=== PATIENT | female | born 1950 | race Caucasian/White ===

== ENCOUNTER 2017-04-05 15:28 | Emergency (ER) | payer OTHER ==
[2017-04-05 15:34] VITALS: BP 134/72; PULSE 98; RESP 18; TEMP 98.2
[2017-04-05] MEDS ORDERED: LIDOCAINE 0.5%-EPI 1:200,000 50 ML VIAL SQ STA (15:41)
[2017-04-05] MEDS ORDERED: SILVER NITRATE APPLICATOR 1 EACH STICK..EA. TOPICAL STA (15:57)
--- NOTE | 2017-04-05 16:00 | ED ---
Extremity Problem HPI - General Chief complaint: Extremity Problem,Nontraumatic Stated complaint: R foot bleed Time Seen by Provider: 04/05/17 15:36 Source: patient, RN notes reviewed Mode of arrival: ambulatory Limitations: no limitations - History of Present Illness Initial comments: 66-year-old female presents emergency Department chief complaint of bleeding wound to the right ankle. Patient states that this started today when she got home from her walk. Patient states he put a pressure dressing on her and it seemed to subside but she still is having some bruising. Patient admits to history of varicose veins. Patient states that there is no pain trauma or any other injury at this time. Patient denies any recent fever, chills, shortness of breath, chest pain, back pain, abdominal pain, nausea vomiting, numbness or tingling, dysuria or hematuria, constipation or diarrhea, headaches or visual changes, or any other current symptoms. - Related Data Home Medications Medication Instructions Recorded Confirmed Atorvastatin [Lipitor] 20 mg PO HS 12/11/14 04/05/17 glipiZIDE [Glucotrol] 10 mg PO W/BRKFST 12/11/14 04/05/17 metFORMIN HCL [Glucophage] 500 mg PO TID-W/MEALS 12/11/14 04/05/17 Albuterol Nebulized [Ventolin 2.5 mg INHALATION RT-QID PRN 04/05/17 04/05/17 Nebulized] Aspirin EC [Ecotrin Low Dose] 81 mg PO HS 04/05/17 04/05/17 Calcium Carbonate/Vitamin D3 1 tab PO DAILY 04/05/17 04/05/17 [Calcium 600-Vit D3 400 Caplet] Lisinopril [Zestril] 20 mg PO DAILY 04/05/17 04/05/17 Allergies Allergy/AdvReac Type Severity Reaction Status Date / Time No Known Allergies Allergy Verified 04/05/17 15:34 Review of Systems ROS Statement: Those systems with pertinent positive or pertinent negative responses have been documented in the HPI. ROS Other: All systems not noted in ROS Statement are negative. Past Medical History Past Medical History: Coronary Artery Disease (CAD), Diabetes Mellitus, GERD/ Reflux, Hyperlipidemia, Hypertension Additional Past Medical History / Comment(s): ABSCESS RIGHT BREAST, STATES HAS DRAINAGE History of Any Multi-Drug Resistant Organisms: None Reported Past Surgical History: Breast Surgery, Cholecystectomy, Heart Catheterization With Stent, Hysterectomy Additional Past Surgical History / Comment(s): STENTS X2, BREAST REDUCTION, BILAT CATARACTS REMOVED. COLONOSCOPY Past Anesthesia/Blood Transfusion Reactions: No Reported Reaction Date of Last Stent Placement:: APPROX 2011 Past Psychological History: No Psychological Hx Reported Smoking Status: Current every day smoker Past Alcohol Use History: None Reported Past Drug Use History: None Reported - Past Family History Mother Family Medical History: No Reported History General Exam - General Exam Comments Initial Comments: General: The patient is awake and alert, in no distress, and does not appear acutely ill. Neck: The neck is supple, there is no tenderness . Cardiovascular: There is a regular rate and rhythm. No murmur, rub or gallop is appreciated. Respiratory: Lungs are clear to auscultation, respirations are non-labored, breath sounds are equal. No wheezes, stridor, rales, or rhonchi. Musculoskeletal: Patient tach with 2+ pulses at the right lower extremity. Fund motion of right knee and right ankle. Patient does appear to have a bleeding varicose pain to the internal aspect of the right ankle. Neurological: CN II-XII intact, There are no obvious motor or sensory deficits. Coordination appears grossly intact. Speech is normal. Skin: Skin is warm and dry and no rashes or lesions are noted. Psychiatric: Normal mood and affect. Limitations: no limitations Course Vital Signs 04/05/17 15:30 Temperature 98.2 F Pulse Rate 98 Respiratory 18 Rate Blood Pressure 134/72 O2 Sat by Pulse 96 Oximetry Procedures - Procedures Initial comment: At this time 1% lidocaine with epi was used to numb the area. The bleeding subsided and cautery was used to stop the bleeding. The area was cleaned and prepped prior to the procedure and with Betadine and the patient tolerated procedure well without complications. 3 mL of lidocaine with epi was used. Medical Decision Making - Medical Decision Making 66-year-old female presents with bleeding from a varicose vein. This tended bleeding has subsided. Cautery was placed. We discussed care follow-up return parameters all questions. Patient and family stated the Jose Carlos on questions have been answered. This time they will be discharged home. Disposition Clinical Impression: Bleeding from varicose veins of right lower extremity Disposition: HOME SELF-CARE Condition: Stable Instructions: Varicose Veins (ED) Additional Instructions: Please use medication as discussed. Please follow up with family doctor if symptoms have not improved over the next two days. Please return to the emergency room if your symptoms increase or worsen or for any other concerns. Referrals: Yair Harris MD [Primary Care Provider] - 1-2 days Time of Disposition: 16:15
== END 2017-04-05 16:20 | disposition home or self-care (01) ==
LOC: EC 15:28
DX: I83.891 Varicose veins of right lower extremity with other complications (principal); E78.5 Hyperlipidemia, unspecified; I25.10 Atherosclerotic heart disease of native coronary artery without angina pectoris; E11.9 Type 2 diabetes mellitus without complications; I10 Essential (primary) hypertension; F17.200 Nicotine dependence, unspecified, uncomplicated; Z79.82 Long term (current) use of aspirin; Z79.84 Long term (current) use of oral hypoglycemic drugs; Z79.899 Other long term (current) drug therapy
CPT/HCPCS: 12001; 99283

== ENCOUNTER 2017-08-18 10:15 | Day surgery (SDC) | payer OTHER ==
[2017-08-17 08:16] VITALS: BMI 35.4
[~2017-08-18 10:15] MED LIST: DEXAMETHASONE SOD PHOSPHATE 10 MG/ML 1 ML VIAL IV ONE; HEPARIN SODIUM,PORCINE 5,000 UNIT/ML 1 ML VIAL SQ ONE; HYDROmorphone 0.5 MG/0.5 ML SYRINGE IVP PRN; LACTATED RINGERS 1,000 ML IV SCH; MIDAZOLAM 2 MG/2 ML VIAL IV PRN; ONDANSETRON 4 MG/2 ML VIAL IVP ONE; ceFAZolin IN SWFI 2 GM/20 ML SYRINGE IVP ONE
[2017-08-18] MEDS ORDERED: HEPARIN SODIUM,PORCINE 5,000 UNIT/ML 1 ML VIAL SQ ONE ×2 (11:33→12:58)
[2017-08-18 12:23] VITALS: RESP 16; TEMP 96.8
[2017-08-18] MEDS ORDERED: LIDOCAINE 1% 20 ML VIAL (10MG/ML) FOR IV START INTRADERMA ONE (12:38)
[2017-08-18 12:47] LABS: Glucose,Whole Blood 149 mg/dL (75-99)
[2017-08-18] MEDS ORDERED: KETAMINE 10 MG/ML 20 ML VIAL ONE (13:27)
[2017-08-18] MEDS ORDERED: MIDAZOLAM 2 MG/2 ML VIAL ONE (13:27)
[2017-08-18] MEDS ORDERED: PROPOFOL 10 MG/ML 20 ML VIAL IV ONE (13:27)
[2017-08-18] MEDS ORDERED: fentaNYL (PF) 50 MCG/ML 2 ML AMP ONE (13:27)
--- NOTE | 2017-08-18 13:58 | P.OP ---
Date of Procedure: 08/18/17 Preoperative Diagnosis: skin lesion possible basal cell carcinoma Postoperative Diagnosis: same Procedure(s) Performed: wide excision skin lesion of concern Anesthesia: MAC Surgeon: Chiquita Moore Estimated Blood Loss (ml): 3 IV fluids (ml): 500 Pathology: other (skin lesion possible ulcerated basal cell carcinoma) Condition: stable Disposition: PACU Indications for Procedure: new-onset ulcerated skin lesion Operative Findings: ulcerated skin lesion Description of Procedure: patient was taken to the operating room and following sedation the area of concern on the right breast was prepped and draped in a sterile fashion. This was in the incision proceeded previously been used for a mastopexy and breast reduction. The lesion itself was approximately 1.5 x 1 cm in size. It had heaped up edges with an ulcerated base. Wide excision was performed excision was approximately 3cmx1.5cm and the depth the incision was through the subcutaneous tissue. To facilitate closure deep 3-0 Vicryl sutures were placed. This was followed by interrupted nylon skin sutures. The specimen was sent to pathology after it had been oriented. The patient tolerated the procedure in stable condition. All instrument and sponge counts were correct at the end of the case.
--- NOTE | 2017-08-18 13:59 | P.DS ---
Providers Attending physician: Chiquita Moore Primary care physician: Steven Mazariegos Plan - Discharge Summary New Discharge Prescriptions: No Action metFORMIN HCL [Glucophage] 500 mg PO TID-W/MEALS glipiZIDE [Glucotrol] 10 mg PO W/BRKFST Atorvastatin [Lipitor] 20 mg PO HS Aspirin EC [Ecotrin Low Dose] 81 mg PO HS Albuterol Nebulized [Ventolin Nebulized] 2.5 mg INHALATION QID PRN PRN Reason: sob Lisinopril [Zestril] 20 mg PO DAILY Sulfamethox-Tmp 800-160Mg [Bactrim DS 800-160 mg] 1 tab PO Q12HR Discharge Medication List Atorvastatin [Lipitor] 20 mg PO HS 12/11/14 [History] glipiZIDE [Glucotrol] 10 mg PO W/BRKFST 12/11/14 [History] metFORMIN HCL [Glucophage] 500 mg PO TID-W/MEALS 12/11/14 [History] Albuterol Nebulized [Ventolin Nebulized] 2.5 mg INHALATION QID PRN 04/05/17 [ History] Aspirin EC [Ecotrin Low Dose] 81 mg PO HS 04/05/17 [History] Lisinopril [Zestril] 20 mg PO DAILY 04/05/17 [History] Sulfamethox-Tmp 800-160Mg [Bactrim DS 800-160 mg] 1 tab PO Q12HR 08/17/17 [ History] Follow up Appointment(s)/Referral(s): Chiquita Moore MD [STAFF PHYSICIAN] - 1 Week Activity/Diet/Wound Care/Special Instructions: patient to wear bra at all times May shower after [address] Discharge Disposition: HOME SELF-CARE
[2017-08-18 14:29] VITALS: BP 105/76; PULSE 76
== END 2017-08-18 15:16 | disposition home or self-care (01) ==
LOC: OR 10:15
PROVIDERS: ATTEND Surgery
DX: E11.52 Type 2 diabetes mellitus with diabetic peripheral angiopathy with gangrene (principal); I96 Gangrene, not elsewhere classified; L90.5 Scar conditions and fibrosis of skin; E78.00 Pure hypercholesterolemia, unspecified; I10 Essential (primary) hypertension; J44.9 Chronic obstructive pulmonary disease, unspecified; Z98.84 Bariatric surgery status; Z79.84 Long term (current) use of oral hypoglycemic drugs; Z79.82 Long term (current) use of aspirin; Z79.52 Long term (current) use of systemic steroids; Z79.899 Other long term (current) drug therapy; F17.200 Nicotine dependence, unspecified, uncomplicated
CPT/HCPCS: 88304; 11403; 12032; J2250; J1644; J1100; J0690; J2405; J3010; J2704

== ENCOUNTER 2017-08-26 07:27 | Emergency (ER) | payer OTHER ==
--- NOTE | 2017-08-26 07:36 | ED ---
General Adult HPI - General Stated complaint: FALL Time Seen by Provider: 08/26/17 07:32 Source: patient, EMS, RN notes reviewed - History of Present Illness Initial comments: 66-year-old female presents for evaluation of left knee pain. Patient states yesterday afternoon she tripped and fell in a parking lot, striking her knee on the curb. Patient had moderate pain after the injury, she was able to bear weight and ambulate. Over the past 12 hours, pain and swelling have worsened. Patient was unable to bear weight this morning on this knee. She complains of bruising, swelling and severe pain. She took her Toston with minimal relief. Denies any other injuries. Denies head or neck trauma. Denies chest pain or shortness breath. Denies abdominal pain, nausea vomiting. - Related Data Home Medications Medication Instructions Recorded Confirmed Atorvastatin [Lipitor] 20 mg PO HS 12/11/14 08/26/17 glipiZIDE [Glucotrol] 10 mg PO W/BRKFST 12/11/14 08/26/17 metFORMIN HCL [Glucophage] 500 mg PO TID-W/MEALS 12/11/14 08/26/17 Aspirin EC [Ecotrin Low Dose] 81 mg PO HS 04/05/17 08/26/17 Lisinopril [Zestril] 20 mg PO DAILY 04/05/17 08/26/17 HYDROcodone/APAP 5-325MG [Toston 1 - 2 tab PO Q4HR PRN 08/26/17 08/26/17 5-325] Previous Rx's Medication Instructions Recorded HYDROcodone/APAP 7.5-325MG [Toston 1 tab PO Q6HR PRN #20 tab 08/26/17 7.5-325] Allergies Allergy/AdvReac Type Severity Reaction Status Date / Time No Known Allergies Allergy Verified 08/26/17 07:38 Review of Systems ROS Statement: Those systems with pertinent positive or pertinent negative responses have been documented in the HPI. ROS Other: All systems not noted in ROS Statement are negative. Past Medical History Past Medical History: Asthma, Coronary Artery Disease (CAD), COPD, Diabetes Mellitus, Hyperlipidemia, Hypertension Additional Past Medical History / Comment(s): ABSCESS RIGHT BREAST, on antibiotic from Dr Clemens for breast infection, varicose veins, History of Any Multi-Drug Resistant Organisms: None Reported Past Surgical History: Breast Surgery, Cholecystectomy, Heart Catheterization, Hysterectomy Additional Past Surgical History / Comment(s): BREAST REDUCTION, BILAT CATARACTS REMOVED Past Anesthesia/Blood Transfusion Reactions: No Reported Reaction Date of Last Stent Placement:: 2011 Smoking Status: Current every day smoker - Past Family History Mother Family Medical History: No Reported History General Exam General appearance: alert, in no apparent distress Head exam: Present: atraumatic, normocephalic Eye exam: Present: normal appearance, PERRL ENT exam: Present: normal exam Neck exam: Present: normal inspection, full ROM. Absent: tenderness Respiratory exam: Present: normal lung sounds bilaterally. Absent: respiratory distress Cardiovascular Exam: Present: regular rate, normal rhythm GI/Abdominal exam: Present: soft. Absent: distended, tenderness Extremities exam: Present: other (Swelling, ecchymosis, and effusion of the left knee, DP pulse on the left 2+. Swelling in the calf with minimal tenderness.) Neurological exam: Present: alert, oriented X3, CN II-XII intact. Absent: motor sensory deficit Psychiatric exam: Present: normal affect, normal mood Skin exam: Present: warm, dry, intact. Absent: cyanosis, diaphoretic Course Vital Signs 08/26/17 08/26/17 07:32 08:35 Temperature 98.4 F Pulse Rate 85 67 Respiratory 20 16 Rate Blood Pressure 141/69 113/53 O2 Sat by Pulse 97 95 Oximetry Medical Decision Making - Medical Decision Making 66-year-old female presents status post fall with pain and swelling of the left knee. There is some mild swelling in the calf, ultrasound is obtained, negative for DVT. X-ray shows no acute bony abnormality, no fracture dislocation. On examination there is ecchymosis, and effusion. There is concern for ligamentous injury of the knee. Patient is placed in a knee immobilizer. Given a prescription for crutches. She will call to make an appointment with orthopedic physician today. Patient does have a friend was able to help at home. Disposition Clinical Impression: Effusion of knee, Knee contusion Disposition: HOME SELF-CARE Condition: Good Instructions: Knee Pain (ED), Swollen Knee Joint (ED) Prescriptions: HYDROcodone/APAP 7.5-325MG [Toston 7.5-325] 1 tab PO Q6HR PRN #20 tab PRN Reason: Pain Referrals: Yair Harris MD [Primary Care Provider] - 1-2 days Ralf Lo MD [Medical Doctor] - 1-2 days Time of Disposition: 09:13
[2017-08-26] MEDS ORDERED: KETOROLAC 30 MG/ML 1 ML VIAL IM STA (07:47)
--- NOTE | 2017-08-26 08:00 | XR ---
EXAMINATION TYPE: XR knee complete LT DATE OF EXAM: 08/26/2017 CLINICAL HISTORY: pain TECHNIQUE: Three views of the left knee are obtained. COMPARISON: None. FINDINGS: There is no acute fracture/dislocation. The tri-compartment joint spaces appear within no rmal limits. The overlying soft tissue appears unremarkable. Suprapatellar joint effusion identified . IMPRESSION: There is no acute fracture or dislocation ICD 10 NO FRACTURE, INITIAL EVALUATION
[2017-08-26 08:36] VITALS: RESP 16
--- NOTE | 2017-08-26 09:04 | US ---
EXAMINATION TYPE: US venous doppler duplex LE LT DATE OF EXAM: 08/26/2017 8:53 AM COMPARISON: NONE CLINICAL HISTORY: Pain. SIDE PERFORMED: Left TECHNIQUE: The lower extremity deep venous system is examined utilizing real time linear array sonog kelli with graded compression, doppler sonography and color-flow sonography. VESSELS IMAGED: External Iliac Vein (EIV) not visualized due to panis Common Femoral Vein Deep Femoral Vein Greater Saphenous Vein * Femoral Vein Popliteal Vein Small Saphenous Vein * Proximal Calf Veins (* superficial vessels) Large body habitus technically difficult study. Grayscale, color doppler, spectral doppler imaging performed of the deep veins of the lower extremity . There is normal flow, compressibility, vascular waveforms. Left Leg: Negative for DVT IMPRESSION: No evidence for DVT left lower extremity.
[2017-08-26 09:27] VITALS: BP 117/68; PULSE 65; TEMP 97.7
== END 2017-08-26 09:20 | disposition home or self-care (01) ==
LOC: EC 07:27
DX: S80.02XA Contusion of left knee, initial encounter (principal); M25.462 Effusion, left knee; E78.5 Hyperlipidemia, unspecified; I10 Essential (primary) hypertension; I25.10 Atherosclerotic heart disease of native coronary artery without angina pectoris; E11.9 Type 2 diabetes mellitus without complications; F17.200 Nicotine dependence, unspecified, uncomplicated; Z79.82 Long term (current) use of aspirin; Z79.84 Long term (current) use of oral hypoglycemic drugs; Z79.899 Other long term (current) drug therapy; W18.09XA Striking against other object with subsequent fall, initial encounter; Y92.481 Parking lot as the place of occurrence of the external cause
CPT/HCPCS: 96372; 99284

== ENCOUNTER 2017-11-25 12:38 | Emergency (ER) | payer OTHER, MEDICARE ==
--- NOTE | 2017-11-25 13:15 | ED ---
Extremity Problem HPI - General Chief complaint: Extremity Problem,Nontraumatic Stated complaint: Arm Pain Time Seen by Provider: 11/25/17 12:48 Source: patient, RN notes reviewed Mode of arrival: ambulatory Limitations: no limitations - History of Present Illness Initial comments: This is a 67-year-old female who presents to the emergency department with chief complaint of intermittent right arm pain. Patient states that her right arm has been hurting for the last 2-3 days. She states that there is a sharp, shooting pain that starts in her right shoulder and radiates down to her wrist and hand. Patient states that she occasionally feels tingling in her fingers. She denies any injury, trauma or falls. Patient also reports that she has some right-sided neck pain. She states that she has an appointment scheduled for tomorrow morning with her orthopedic doctor. She states that she is in a lot of pain and requests pain medication. She states that she has taken Aleve and BenGay with minimal relief. Denies fever, chills, chest pain, shortness of breath, abdominal pain, nausea or vomiting, constipation or diarrhea, dysuria or hematuria, headache or vision changes. - Related Data Home Medications Medication Instructions Recorded Confirmed Atorvastatin [Lipitor] 20 mg PO HS 12/11/14 08/26/17 glipiZIDE [Glucotrol] 10 mg PO W/BRKFST 12/11/14 08/26/17 metFORMIN HCL [Glucophage] 500 mg PO TID-W/MEALS 12/11/14 08/26/17 Aspirin EC [Ecotrin Low Dose] 81 mg PO HS 04/05/17 08/26/17 Lisinopril [Zestril] 20 mg PO DAILY 04/05/17 08/26/17 HYDROcodone/APAP 5-325MG [Britt 1 - 2 tab PO Q4HR PRN 08/26/17 08/26/17 5-325] Previous Rx's Medication Instructions Recorded HYDROcodone/APAP 7.5-325MG [Britt 1 tab PO Q6HR PRN #20 tab 08/26/17 7.5-325] Ibuprofen 600 mg PO Q6HR #20 tablet 11/25/17 Allergies Allergy/AdvReac Type Severity Reaction Status Date / Time No Known Allergies Allergy Verified 11/25/17 12:47 Review of Systems ROS Statement: Those systems with pertinent positive or pertinent negative responses have been documented in the HPI. ROS Other: All systems not noted in ROS Statement are negative. Past Medical History Past Medical History: Asthma, Coronary Artery Disease (CAD), COPD, Diabetes Mellitus, Hyperlipidemia, Hypertension Additional Past Medical History / Comment(s): ABSCESS RIGHT BREAST, on antibiotic from Dr Clemens for breast infection, varicose veins, History of Any Multi-Drug Resistant Organisms: None Reported Past Surgical History: Breast Surgery, Cholecystectomy, Heart Catheterization, Hysterectomy Additional Past Surgical History / Comment(s): BREAST REDUCTION, BILAT CATARACTS REMOVED Past Anesthesia/Blood Transfusion Reactions: No Reported Reaction Date of Last Stent Placement:: APPROX 2011 Past Psychological History: No Psychological Hx Reported Smoking Status: Current every day smoker Past Alcohol Use History: None Reported Past Drug Use History: None Reported - Past Family History Mother Family Medical History: No Reported History General Exam - General Exam Comments Initial Comments: General: Awake and alert, well-developed; in no apparent distress. HEENT: Head atraumatic, normocephalic. Pupils are equal, round and reactive to light. Extraocular movements intact. Oropharynx moist without erythema or exudate. Neck: Supple. Normal ROM. No tenderness. Cardiovascular: Regular rate and rhythm. No murmurs, rubs or gallops. Chest symmetrical. Respiratory: Lungs clear to auscultation bilaterally. No wheezes, rales or rhonchi. Normal respiratory effort with no use of accessory muscles. Musculoskeletal: Normal ROM of right upper extremity. Strength 5/5. No obvious gross deformities, erythema, swelling, ecchymosis or tenderness on palpation. Sensation is intact. Radial pulses are 2+ equal and palpable bilaterally. Skin: [place], warm and dry without rashes or lesions. Neurological: Alert and oriented x3. CN II-XII grossly intact. Speech is fluent and answers are appropriate. No focal neuro deficits. Limitations: no limitations Course Vital Signs 11/25/17 12:45 Temperature 98.1 F Pulse Rate 85 Respiratory 20 Rate Blood Pressure 143/92 O2 Sat by Pulse 98 Oximetry Medical Decision Making - Medical Decision Making This is a 67-year-old female who presents to the emergency department chief complaint of intermittent right arm pain. Pain begins in her right shoulder and radiates down the length of her arm. She describes the pain as sharp and shooting in nature. Denies any injuries or recent falls. X-ray of right shoulder reveal no acute abnormalities. X-ray of cervical spine revealed no acute abnormalities, however he did no foraminal narrowing at C5 to C6. Patient 's strength is 5/5 and radial pulses are 2+ equal and palpable bilaterally. Denies chest pain or shortness of breath. She will be discharged home with a prescription for ibuprofen. She is in no acute distress. She is to follow up with her orthopedic doctor tomorrow morning as scheduled. Patient is in agreement and voices understanding. All questions were answered. - Radiology Data Radiology results: report reviewed Right shoulder x-ray findings: There is no interval change. Old right-sided rib fractures at the sixth rib again noted. Hypertrophic change present at the acromioclavicular joint. Right lung apex is visualized is normal. No fracture or dislocation. Impression: stable exam. Shoulder MRI may be a benefit. X-ray cervical spine impression: 1. No acute fracture or dislocation is seen in the cervical spine. 2. Mild laterally and C6 through C7 on the left multilevel degenerative changes of the cervical spine resulting at least mild neural foraminal narrowing at C5 to C6. 3. Incidentally noted left calcific atheromatous changes of the carotid. Disposition Clinical Impression: Cervical radicular pain Disposition: HOME SELF-CARE Condition: Good Instructions: Cervical Radiculopathy (ED) Additional Instructions: Please take medications as prescribed. Please follow up with your orthopedic doctor tomorrow as scheduled. Please follow up with primary care provider within 1-2 days. Return to emergency department if symptoms should worsen or any concerns arise. Prescriptions: Ibuprofen 600 mg PO Q6HR #20 tablet Referrals: Yair Harris MD [Primary Care Provider] - 1-2 days Time of Disposition: 14:18
--- NOTE | 2017-11-25 13:56 | XR ---
EXAMINATION TYPE: XR cervical spine comp DATE OF EXAM: 11/25/2017 TECHNIQUE: Frontal, oblique and lateral cervical spine radiograph's are obtained. Odontoid view is al so obtained. HISTORY: Neck pain COMPARISON: None FINDINGS: The cervical spine is visualized in its entirety from C1 thru the top of C6 level, it is s atisfactory in alignment without evidence of acute fracture or dislocation. The pre-vertebral soft t issue appears within normal limits. The C1-C2 articulation is within normal limits on the open mouth view. Mild multilevel degenerative disc disease is seen demonstrated as facet arthropathy, small ant erior osteophytes and intervertebral disc space narrowing. Uncovertebral hypertrophy is also seen on the frontal image. This results in at least mild radiographic neural foraminal narrowing at C5-C6 on the right and C5-C6 as well as C6-C7 on the left. Incidental note is made of calcific atheromatous ch anges of the left carotid artery. Visualized upper ribs are nondisplaced. IMPRESSION: 1. No acute fracture or dislocation is seen in the cervical spine. 2. Mild laterally and C6-C7 on the left multilevel degenerative changes of the cervical spine resulti ng in at least mild neural foraminal narrowing at C5-C6. 3. Incidentally noted left calcific atheromatous changes of the carotid.
--- NOTE | 2017-11-25 13:57 | XR ---
Right shoulder HISTORY: Right shoulder pain 3 views of the right shoulder correlated to prior exam 04/05/2014 There is no interval change. Old right-sided rib fracture at the sixth rib again noted. Hypertrophic change present at the acromioclavicular joint. Right lung apex as visualized is normal. No fracture o r dislocation. IMPRESSION: Stable exam. Shoulder MRI may be of benefit.
[2017-11-25 14:34] VITALS: BP 138/86; PULSE 87; RESP 17; TEMP 98.3
== END 2017-11-25 14:33 | disposition home or self-care (01) ==
LOC: EC 12:38
DX: M54.12 Radiculopathy, cervical region (principal); M79.601 Pain in right arm; I25.10 Atherosclerotic heart disease of native coronary artery without angina pectoris; E11.9 Type 2 diabetes mellitus without complications; E78.5 Hyperlipidemia, unspecified; I10 Essential (primary) hypertension; F17.200 Nicotine dependence, unspecified, uncomplicated; Z79.82 Long term (current) use of aspirin; Z79.84 Long term (current) use of oral hypoglycemic drugs; Z79.899 Other long term (current) drug therapy
CPT/HCPCS: 72050; 99283

== ENCOUNTER → 2018-07-01 | Outpatient (CLI) | payer MEDICARE, OTHER ==
[2018-07-01 16:14] VITALS: BP 129/74; PULSE 80; RESP 16; TEMP 97.8; BMI 39.9
--- NOTE | 2018-07-01 16:27 | P.GSHP ---
History of Present Illness H&P Date: 07/01/18 Patient is a 67 year old white female with a complaint of bleeding and drainage under her right breast. This has been going on for several weeks. Patient has had multiple abscesses drained in both breasts in the right breast in the past. Has no fever or chills. She her last mammogram was approximately a year and a half ago. She has no dominant masses or nodules of concern in either breast. Of significance is the fact the patient is had bilateral reduction mammoplasties done in 1991. Since that time she has had recurrent abscesses in the inferior aspect of the right breast. These of required surgical drainage on multiple occasions. Her last surgical treatment was a proximally 6 months ago draining an abscess from the right breast. Family History: none cancer mother: form CHF father: CHF Hormonal History: menarche: 16 : 3, 3 live births, did not breast-feed firstborn at 20 Menopause: 52 control pills: 2 years Hormones: 2 years Past Surgical History: 1. gallbladder 2. total hysterectomy 3. breast reduction 4. breast abcesses drained 5. heart cath Past Medical History: 1. COPD 2. bronchitis/emphysema 3. asthma 4. HTN 5. high cholesterol 6. nicotine dependance 7. diabetes 8. hyperlipedema Social Hsitory: smoke: 1 PPD/40 years alcohol: none drugs: none - Constitutional Constitutional: Denies chills, Denies fever - EENT Comment: cataract surgery bilateral eyes Ears: deny: decreased hearing, tinnitus Ears, nose, mouth and throat: Denies headache, Denies sore throat - Breasts Breasts: bilateral: as per HPI - Cardiovascular Cardiovascular: Reports high blood pressure - Respiratory Respiratory: Reports as per HPI - Gastrointestinal Gastrointestinal: Denies abdominal pain, Denies diarrhea, Denies nausea, Denies vomiting - Genitourinary (Female) Genitourinary: Denies dysuria, Denies hematuria - Menstruation Menstruation: Reports post hysterectomy - Musculoskeletal Musculoskeletal: Reports low back pain, Denies myalgias - Integumentary Integumentary: Denies pruritus, Denies rash - Neurological Neurological: Denies numbness, Denies weakness - Psychiatric Psychiatric: Denies anxiety, Denies depression - Endocrine Comment: diabetes - Hematologic/Lymphatic Comment: none - Allergic/Immunologic Comment: none Past Medical History Past Medical History: Asthma, Coronary Artery Disease (CAD), COPD, Diabetes Mellitus, Hyperlipidemia, Hypertension Additional Past Medical History / Comment(s): ABSCESS RIGHT BREAST, on antibiotic from Dr Clemens for breast infection, varicose veins, History of Any Multi-Drug Resistant Organisms: None Reported Past Surgical History: Breast Surgery, Cholecystectomy, Heart Catheterization, Hysterectomy Additional Past Surgical History / Comment(s): BREAST REDUCTION, BILAT CATARACTS REMOVED Past Anesthesia/Blood Transfusion Reactions: No Reported Reaction Date of Last Stent Placement:: 2011 Past Psychological History: No Psychological Hx Reported Smoking Status: Current every day smoker Past Alcohol Use History: None Reported Past Drug Use History: None Reported - Past Family History Mother Family Medical History: No Reported History Medications and Allergies Home Medications Medication Instructions Recorded Confirmed Type Atorvastatin [Lipitor] 20 mg PO HS 12/11/14 08/26/17 History glipiZIDE [Glucotrol] 10 mg PO W/BRKFST 12/11/14 08/26/17 History metFORMIN HCL [Glucophage] 500 mg PO TID-W/MEALS 12/11/14 08/26/17 History Aspirin EC [Ecotrin Low Dose] 81 mg PO HS 04/05/17 08/26/17 History Lisinopril [Zestril] 20 mg PO DAILY 04/05/17 08/26/17 History HYDROcodone/APAP 5-325MG [[place] 1 - 2 tab PO Q4HR PRN 08/26/17 08/26/17 History 5-325] HYDROcodone/APAP 7.5-325MG [[place] 1 tab PO Q6HR PRN #20 tab 08/26/17 Rx 7.5-325] Ibuprofen 600 mg PO Q6HR #20 tablet 11/25/17 Rx Allergies Allergy/AdvReac Type Severity Reaction Status Date / Time No Known Allergies Allergy Verified 11/25/17 12:47 Surgical - Exam BMI: 39.9 - General obese - Eyes normal ocular movement - ENT no hearing loss, no congestion, dentures - Neck no masses, trachea midline - Respiratory normal expansion, normal respiratory effort, clear to auscultation - Cardiovascular Rhythm: regular Heart Sounds: normal: S1, S2 - Abdomen Abdomen: soft, non tender, no guarding, no rigid, no rebound - Integumentary Under the right breast there is an area approximately 2 cm x 6 cm which is erythematous and nonhealing wound. The patient states from this area she has purulent drainage at times although there is no purulence there at this time. Cultures are obtained from this area. The right breast is smaller than the left breast following her reduction mammoplasty and multi-positional exam does not reveal any dominant masses or nodules of concern in the right breast. Right axilla: No adenopathy of concern Left breast: Scars related to prior reduction mammoplasty, multi-positional exam no dominant masses or nodules of concern Left axilla: No adenopathy of concern - Neurologic no disoriented, no combative - Musculoskeletal normal gait, normal posture - Psychiatric oriented to time, oriented to person, oriented to place, speech is normal, memory intact Results Impression: 1. Bilateral breast reduction with recurrent nonhealing scar tissue under the right breast, no active infection at this time area of nonhealing wound under the right breast at this time 2. Hypertension 3. Diabetes 4. High cholesterol 5. morbid obesity 6. Asthma 7. COPD 9. Status post surgery for varicose vein 10. Nicotine dependence Plan: 1. Surgical resection of the area of scar tissue 2. await cultures 3. bilateral mammogram 4. Medical management of medical problems 5. medical clearance for surgery Patient understands risks and benefits of surgery and wishes to proceed. CC: Dr. Harris
== END ==
LOC: WWCWWP 15:03
PROVIDERS: ATTEND Surgery
DX: Z53.9 Procedure and treatment not carried out, unspecified reason (principal)

== ENCOUNTER → 2018-10-19 | Outpatient (CLI) | payer MEDICARE, OTHER ==
--- NOTE | 2018-10-27 08:24 | MM ---
Reason for exam: additional evaluation requested from prior study. Last mammogram was performed 13 years ago. History: Patient is postmenopausal. Cyst aspiration of the right breast, 1995. Excisional biopsy of the left breast, 1995. Reductions of both breasts, 1991. Physical Findings: Nurse did not find any significant physical abnormalities on exam. MG Diagnostic Mammo w CAD [place] Bilateral CC and MLO view(s) were taken. Prior study comparison: April 13, 2017, mammogram, performed at [facility]. There are scattered fibroglandular densities. There are benign appearing round calcifications bilaterally. There is no discrete abnormality. These results were verbally communicated with the patient on 10/26/18. ASSESSMENT: Benign, BI-RAD 2 RECOMMENDATION: Routine screening mammogram of both breasts in 1 year. Manage patient on a clinical basis.
== END | disposition home or self-care (01) ==
LOC: RADMAMWWP 12:51
PROVIDERS: ATTEND Surgery
DX: N61.1 Abscess of the breast and nipple (principal)
CPT/HCPCS: 77066

== ENCOUNTER → 2019-02-24 | Outpatient (CLI) | payer MEDICARE, OTHER ==
[2019-02-24 14:13] VITALS: BP 108/65; PULSE 92; RESP 16; TEMP 98.2; BMI 36.6
--- NOTE | 2019-02-24 15:23 | P.PN ---
Subjective Progress Note Date: 02/24/19 The patient is a 68 year old white female with a complaint of a rash under the lateral aspect of the right breast, and a lesion 1.5 by 2 cm which is a poorly healing lesion under her breast. It was circular area in the scar from a reduction mammopalsty done in 1991. The lesion was first noted about 6 months ago. She has had multiple abscesses drained under the right breast in the past. Her last mammogram was on 10-19-18, which was bilateral and benign BIRADS 2. She is complaing of pain on the lateral aspect of the right breast, and the sore although healed becomes irritated with her dressings and bleeds when she changes the dressing. She does not note any lumps or masses in the breast. She has no nipple discharge or skin changes. She is drinking at least a pot of coffee/day, no pop. She smokes 1/PPD. She is not exposed to second hand smoke. She eats chocolate at least one time a week. She is not taking any hormones. Family History: none Hormonal History: menarche:16 , did not breast feed, first born at 20 Menopause: 52 BCP: 2 years Hormones: 2 years Past Surgical History: 1. gallbaldder 2. toatl hysterectomy 3. breast reduction bilateral 4. varicose veins 5. heart cath Medical History: 1. COPD 2. bronchitis 3. asthma 4. HTN 5. high cholesterol 6. nicotine dependance 7. diabetes Social History: smoke: 1PPD/51 years alcohol: none drugs: none ROS: HEENT: none lungs: COPD heart: none GI: none :none, menopausal muscle skelatal: arthritis psych: none allergies: none Objective - Vital Signs Vital signs: Vital Signs Temp 98.2 F 02/24/19 13:49 Pulse 92 02/24/19 13:49 Resp 16 02/24/19 13:49 BP 108/65 02/24/19 13:49 Pulse Ox 94 L 02/24/19 13:49 Intake & Output 02/23/19 02/24/19 02/24/19 18:59 06:59 18:59 Weight 106.141 kg - Exam BMI 37.8 - Constitutional General appearance: Present: obese - EENT Eyes: Present: EOMI ENT: Present: hearing grossly normal - Neck Neck: Present: normal ROM - Respiratory Respiratory: bilateral: CTA - Cardiovascular Rhythm: regular Heart sounds: normal: S1, S2 - Gastrointestinal General gastrointestinal: Present: soft - Musculoskeletal Musculoskeletal: Present: gait normal - Psychiatric Psychiatric: Present: A&O x's 3, appropriate affect, intact judgment & insight - Additional findings Additional findings: breast exam: right breast: multipostional exam smaller than the left breast, no dominate masses, under the breast nonhealing sore, 1.5 by 2 cm, rash lateral aspect under the breast right axilla: no adenopathy of concern left breast: no dominate masses of nodules of concern, larger than the right breast left axilla: no adenopathy of concern Asymmetry of the breast, difficult to fit a bra, it is uncomfortable and embarrassing to the patient Assessment and Plan Assessment: Impression: 1. asymmetric breast 2. nicotine dependance 3. nonhealing sore under the right bresat 4. probable fungal infection lateral aspect of the right breast 5. obesity 6. asthma 7. COPD 8. diabetes 9. HTN Plan 1. repeat bilateral mammogram in one year, follow up here 2. ? resect lesion under right bresat 3. medical managment of medical problems 4. follow up in one month after treatment with nystatin 5. decrease coffee CC: Dr. Harris
== END | disposition home or self-care (01) ==
LOC: WWCWWP 13:48
PROVIDERS: ATTEND Surgery
DX: Z53.9 Procedure and treatment not carried out, unspecified reason (principal)

== ENCOUNTER → 2019-03-09 | Outpatient (CLI) | payer MEDICARE, OTHER ==
--- NOTE | 2019-03-09 14:59 | XR ---
Cervical spine HISTORY: R 54 5 views of the cervical spine Correlation to prior exam 11/25/2017 No significant interval change. Anterolisthesis grade 1 C3-4. Loss of disc height present at C5-6 wit h associated spondylosis. Lower lumbar spine is not well seen. Lateral extension of endplates at C6-7 and C5-6 causes foraminal encroachment. Bone mineralization is reduced. Cervical vertebral bodies sh ow preserved height. IMPRESSION: Degenerative disc disease. Osteopenia.
--- NOTE | 2019-03-09 15:00 | XR ---
Thoracic spine HISTORY: R 52 3 views of the thoracic spine There is a dextroscoliosis centered at the T12 level. Thoracic vertebral bodies show preserved height . Bone mineralization is reduced. There is multilevel spondylosis with some loss of disc height and i ntervertebral levels. IMPRESSION: Degenerative disc disease, osteopenia, scoliosis.
--- NOTE | 2019-03-09 15:01 | XR ---
Lumbar sacral spine HISTORY: R 52 5 views of the lumbosacral spine Levoscoliosis is centered at approximately L1-2. Bone mineralization is reduced. There is multilevel spondylosis. There is no evident spondylolysis or spondylolisthesis. Loss of disc height at the inter vertebral levels is present with associated vacuum phenomenon. Sclerosis present in the posterior daniella ments of the lower lumbar spine. Basilar calcifications are noted incidentally. IMPRESSION: Osteopenia, degenerative disc disease, facet arthropathy and spinal curvature.
== END ==
LOC: RADXRMAIN 13:17
PROVIDERS: ATTEND Internal Medicine
DX: M50.30 Other cervical disc degeneration, unspecified cervical region (principal); M51.35 Other intervertebral disc degeneration, thoracolumbar region; M85.88 Other specified disorders of bone density and structure, other site; M46.87 Other specified inflammatory spondylopathies, lumbosacral region; M43.8X7 Other specified deforming dorsopathies, lumbosacral region
CPT/HCPCS: 72050; 72072; 72110

== ENCOUNTER → 2019-03-21 | Outpatient (CLI) | payer MEDICARE, OTHER ==
--- NOTE | 2019-03-21 17:36 | MR ---
EXAMINATION TYPE: MR thoracic spine wo con DATE OF EXAM: 03/21/2019 COMPARISON: NONE HISTORY: 68-year-old female Mid back pain TECHNIQUE: Multiplanar, multisequence images of the thoracic spine were obtained without IV contrast. FINDINGS: The sagittal T2 counting sequence shows moderate degenerative disc disease as well as ligamentum flav um thickening causing mild narrowing of the spinal canal particularly at C5-C6 and C6-C7. There is accentuated lower thoracic kyphosis. Mild multilevel degenerative disc disease is present wi th variable disc desiccation. There is associated Modic type II endplate change anteriorly at T9-T10 contributing to the kyphotic deformity. Additional scattered Modic type II fatty endplate change elsewhere. Mild heterogeneous marrow signal without suspicious bone marrow replacement. Vertebral body heights are preserved. Alignment is maintained. Scattered mild facet arthropathy. No large focal disc herniation or significant spinal canal stenosis. On the right, no significant neuroforaminal stenosis. On the left, there is mild neuroforaminal narrowing at T1-T2 and T2-T3. Unable to exclude bilateral adrenal masses measuring up to 3.8 cm on the right and 4.2 cm on the left . IMPRESSION: 1. Mild multilevel degenerative disc disease but with scattered Modic type II fatty endplate change. This is greatest at T9-T10 anteriorly which is the level of an accentuated lower thoracic kyphosis. 2. No large focal disc herniation or significant spinal canal stenosis. 3. Scattered mild facet arthropathy. Changes result in mild left-sided neuroforaminal narrowing at T1 -T2 and T2-T3. 4. Additional cervical spondylosis with mild spinal canal narrowing at C5-C6 and C6/C7. 5. Unable to exclude bilateral adrenal masses measuring up to 4.2 cm on the left and 3.8 cm on the ri ght. Adrenal mass protocol CT can further evaluate.
== END | disposition home or self-care (01) ==
LOC: RADMRIMAIN 13:40
PROVIDERS: ATTEND Internal Medicine
DX: M48.02 Spinal stenosis, cervical region (principal); M47.812 Spondylosis without myelopathy or radiculopathy, cervical region; M51.34 Other intervertebral disc degeneration, thoracic region; M46.94 Unspecified inflammatory spondylopathy, thoracic region; M40.294 Other kyphosis, thoracic region
CPT/HCPCS: 72146

== ENCOUNTER → 2019-03-23 | Outpatient (CLI) | payer MEDICARE, OTHER ==
[2019-03-23 14:57] LABS: African American GFR (CKD) >90 (>60 ml/min/1.73 sqM); Blood Urea Nitrogen 11 mg/dL (7-17)
--- NOTE | 2019-03-24 04:29 | CT ---
EXAMINATION TYPE: CT abdomen pelvis w con, CT abdomen wo con DATE OF EXAM: 03/23/2019 COMPARISON: MRI thoracic spine 03/21/2019 HISTORY: 68-year-old female TECHNIQUE: Contiguous axial scanning of the abdomen and pelvis following administration of 100 ml Iso jayce 300 IV contrast. Initial noncontrast scan through the abdomen. Delayed images through the kidney s were also obtained per adrenal mass protocol CT. Coronal/sagittal reconstructions performed. CT DLP: 2207 mGycm Automated exposure control for dose reduction was used. FINDINGS: The heart is upper limits of normal in size without pericardial effusion. Strandy areas of atelectasi s in the lower lungs without pleural effusion. Liver enlarged at 20.9 cm. No focal liver lesion is seen. No biliary ductal dilatation. Portal venous system is patent. Cholecystectomy clips. Kidneys show no nephrolithiasis or hydronephrosis. Symmetric uptake and excretion of contrast from casey th kidneys. Adrenal glands and pancreas appear within normal limits. Bilateral adrenal masses are confirmed measuring up to 3.5 cm on the right and 4.2 cm on the left. Th td have attenuation of -5 to -20 Hounsfield units. Findings are compatible with benign adrenal adeno mas. [id number] atherosclerotic calcifications infrarenal abdominal aorta and iliac arteries without aneurysm. Duplex right renal artery incidentally noted. No dilated small bowel, free fluid, or free air. No mesenteric or retroperitoneal lymphadenopathy. Normal appendix. Moderate stool burden. Mildly redundant sigmoid colon. Pelvic phleboliths. Bladder partially distended. Uterus surgically absent. No abnormal fluid collecti on in the pelvis or pelvic lymphadenopathy. Ovaries not clearly identified. Bones: Degenerative changes at the pubic symphysis. Mild degenerative changes of the hips. Degenerate d levoconvex scoliosis as well as a left L5 hemisacralization. Grade 1 anterolisthesis at L3-L4 and L 4-L5 and grade 1 retrolisthesis at T12-L1. DISH within the lower thoracic spine. IMPRESSION: 1. ADRENAL MASS PROTOCOL CT COMPATIBLE WITH BENIGN BILATERAL LIPID RICH ADRENAL ADENOMAS MEASURING 3. 5 CM ON THE RIGHT AND 4.2 CM ON THE LEFT. 2. HEPATOMEGALY (20.9 CM). 3. MODERATE STOOL BURDEN. DEGENERATED LEVOCONVEX SCOLIOSIS AND A LEFT L5 HEMISACRALIZATION.
== END | disposition home or self-care (01) ==
LOC: RADCTMAIN 14:00
PROVIDERS: ATTEND Internal Medicine
DX: R16.0 Hepatomegaly, not elsewhere classified (principal); Z88.1 Allergy status to other antibiotic agents
CPT/HCPCS: 82565; 84520; 74150; 74177; 36415; Q9967

== ENCOUNTER → 2019-10-21 | Outpatient (CLI) | payer MEDICARE, OTHER ==
--- NOTE | 2019-10-24 11:13 | MM ---
Reason for exam: screening (asymptomatic). Last mammogram was performed 1 year ago. History: Patient is postmenopausal. Cyst aspiration of the right breast, 1995. Excisional biopsy of the left breast, 1995. Reductions of both breasts, 1991. Physical Findings: A clinical breast exam by your physician is recommended on an annual basis and results should be correlated with mammographic findings. MG Screening Mammo w CAD Bilateral CC and MLO view(s) were taken. Prior study comparison: October 19, 2018, bilateral MG diagnostic mammo w CAD [place]. April 13, 2017, mammogram, performed at [facility]. There are scattered fibroglandular densities. There are benign appearing regional round calcifications bilaterally. There is no discrete abnormality. ASSESSMENT: Benign, BI-RAD 2 RECOMMENDATION: Routine screening mammogram of both breasts in 1 year.
== END | disposition home or self-care (01) ==
LOC: RADMAMWWP 15:21
PROVIDERS: ATTEND Surgery
DX: Z12.31 Encounter for screening mammogram for malignant neoplasm of breast (principal)
CPT/HCPCS: 77067

== ENCOUNTER → 2019-10-26 | Outpatient (CLI) | payer MEDICARE, OTHER ==
[2019-10-26 18:34] LABS: African American GFR (CKD) 103.9 (60.0-200.0); Albumin 4.1 g/dL (3.80-4.90); Albumin/Globulin Ratio 2.05 (1.60-3.17); Anion Gap 8.1 mmol/L (4.00-12.00); Bilirubin, Conjugated 0.2 mg/dL (0.20-0.40); Bilirubin,Unconjugated 0.4 mg/dL; Carbon Dioxide 28.9 mmol/L (21.6-31.8); Chol/HDL Ratio 3.74; LDL Cholesterol,Calculated 85.4 mg/dL (0.0-131.0); Non-African American GFR(CKD) 89.7 (60.0-200.0); Potassium 4.5 mmol/L (3.5-5.5); Total Bilirubin 0.6 mg/dL (0.2-1.2); Total Protein 6.1 g/dL (6.2-8.2); VLDL Calculation 18.6 mg/dL (5.00-40.00)
[2019-10-26 18:52] LABS: Hemoglobin A1C 6.9 % (4.0-6.0)
== END | disposition home or self-care (01) ==
LOC: LABWHC1 09:00
PROVIDERS: ATTEND Internal Medicine
DX: I10 Essential (primary) hypertension (principal); E11.9 Type 2 diabetes mellitus without complications; E78.5 Hyperlipidemia, unspecified
CPT/HCPCS: 36415; 80051; 80061; 80076; 82565; 83036; 84520

== ENCOUNTER → 2019-10-27 | Outpatient (CLI) | payer MEDICARE, OTHER ==
[2019-10-27 15:47] VITALS: BP 140/82; PULSE 94; RESP 18; TEMP 97.5
--- NOTE | 2019-10-27 16:10 | P.PN ---
Subjective Progress Note Date: 10/27/19 Principal diagnosis: surveillance fibrocystic breast changes Patient is a 67 year old white female with a complaint of bleeding and drainage under her right breast. This has been going on for several weeks. Patient has had multiple abscesses drained in the right breasts in the past. Has no fever or chills. She her last him a gram and 12 420. This was benign BIRADS 2. It was bilateral. She has no dominant masses or nodules of concern in either breast. Of significance is the fact the patient is had bilateral reduction mammoplasties done in 1991. Since that time she has had recurrent abscesses in the inferior aspect of the right breast. These of required surgical drainage on multiple occasions. Her last surgical treatment was about two years ago draining an abscess from the right breast. He complains of some mild soreness under her right breast for the past 2 weeks. There is no drainage. There is no fever or chills. There is no redness associated with this. She has no complaints related to the left breast. caffeine: 1 pot of coffee/day smoke: 1/2 pack of cigarettes/day chocolate: weekly Family History: no cancer mother: form CHF father: CHF Hormonal History: menarche: 16 : 3, 3 live births, did not breast-feed firstborn at 20 Menopause: 52 control pills: 2 years Hormones: 2 years Past Surgical History: 1. gallbladder 2. total hysterectomy 3. breast reduction 4. breast abcesses drained 5. heart cath Past Medical History: 1. COPD 2. bronchitis/emphysema 3. asthma 4. HTN 5. high cholesterol 6. nicotine dependance 7. diabetes 8. hyperlipedema Social Hsitory: smoke: 1 PPD/40 years alcohol: none drugs: none - Constitutional Constitutional: Denies chills, Denies fever - EENT Comment: cataract surgery bilateral eyes Ears: deny: decreased hearing, tinnitus Ears, nose, mouth and throat: Denies headache, Denies sore throat - Breasts Breasts: bilateral: as per HPI - Cardiovascular Cardiovascular: Reports high blood pressure - Respiratory Respiratory: Reports as per HPI - Gastrointestinal Gastrointestinal: Denies abdominal pain, Denies diarrhea, Denies nausea, Denies vomiting - Genitourinary (Female) Genitourinary: Denies dysuria, Denies hematuria - Menstruation Menstruation: Reports post hysterectomy - Musculoskeletal Musculoskeletal: Reports low back pain, Denies myalgias - Integumentary Integumentary: Denies pruritus, Denies rash - Neurological Neurological: Denies numbness, Denies weakness - Psychiatric Psychiatric: Denies anxiety, Denies depression - Endocrine Comment: diabetes - Hematologic/Lymphatic Comment: none - Allergic/Immunologic Comment: none Past Medical History Past Medical History: Asthma, Coronary Artery Disease (CAD), COPD, Diabetes Mellitus, Hyperlipidemia, Hypertension Additional Past Medical History / Comment(s): ABSCESS RIGHT BREAST, antibiotic from Dr Clemens for breast infection in the past, varicose veins, History of Any Multi-Drug Resistant Organisms: None Reported Past Surgical History: Breast Surgery, Cholecystectomy, Heart Catheterization, Hysterectomy Additional Past Surgical History / Comment(s): BREAST REDUCTION, BILAT CATARACTS REMOVED Past Anesthesia/Blood Transfusion Reactions: No Reported Reaction Date of Last Stent Placement:: none Past Psychological History: No Psychological Hx Reported Smoking Status: Current every day smoker Past Alcohol Use History: None Reported Past Drug Use History: None Reported Objective - Vital Signs Vital signs: Vital Signs Temp 97.5 F L 10/27/19 15:43 Pulse 94 10/27/19 15:43 Resp 18 10/27/19 15:43 BP 140/82 10/27/19 15:43 Pulse Ox 94 L 10/27/19 15:43 Intake & Output 10/26/19 10/27/19 10/27/19 18:59 06:59 18:59 Weight 105.233 kg - Exam BMI 41.1 - Constitutional General appearance: Present: obese - EENT Eyes: Present: EOMI ENT: Present: hard of hearing, hearing grossly normal - Respiratory Respiratory: bilateral: CTA - Cardiovascular Rhythm: regular Heart sounds: normal: S1, S2 - Gastrointestinal General gastrointestinal: Present: normal bowel sounds, soft - Integumentary Integumentary: Present: normal turgor - Musculoskeletal Musculoskeletal: Present: gait normal - Psychiatric Psychiatric: Present: A&O x's 3, appropriate affect, intact judgment & insight - Additional findings Additional findings: Breast Exam: Inspection: well healed scars lateral reduction mammoplasty, right breast smaller than left breast Bra 38D ptosis grade 1/2 Palpation: Right breast: Multi-positional exam no dominant masses or nodules of concern incision and inferior aspect of the breast has a area of patient at the medial aspect there is no open drainage at this site well-healed scar from reduction mammoplasty Right axilla: No adenopathy of concern Left breast: Left breast is larger than the right breast well-healed scars from reduction mammoplasty multiple positional exam fibrocystic changes no dominant masses or nodules of concern Left axilla: No adenopathy of concern Assessment and Plan Assessment: Impression: 1. Asymmetry of the breast related to previous bilateral reduction mammoplasty 2. Well-healed scars bilateral with some induration of the scar under the right breast at the medial aspect no active infection no drainage 3. Radiographic stability of the breast 4. Fibrocystic breast changes Plan: 1. Repeat bilateral mammogram in 1 year with physician exam at that time 2. Have discussed stopping the caffeine/nicotine/chocolate intake to better control of fibrocystic breast changes We have discussed causes of fibrocystic breast change. She understands we'll try to modify her lifestyle. If she notes any changes or concerns I will see her sooner otherwise 1 year examination CC: Dr. Harris encounter 20 minutes, > 50% in planning and counselling Time with Patient: Less than 30
== END | disposition home or self-care (01) ==
LOC: WWCWWP 15:20
PROVIDERS: ATTEND Surgery
DX: Z53.9 Procedure and treatment not carried out, unspecified reason (principal)

== ENCOUNTER → 2020-10-23 | Outpatient (CLI) | payer MEDICARE, OTHER ==
--- NOTE | 2020-10-25 11:51 | MM ---
Reason for exam: screening (asymptomatic). Last mammogram was performed 1 year ago. History: Patient is postmenopausal. Cyst aspiration of the right breast, 1995. Excisional biopsy of the left breast, 1995. Reductions of both breasts, 1991. Took hormonal contraceptives for 2 years. Physical Findings: A clinical breast exam by your physician is recommended on an annual basis and results should be correlated with mammographic findings. MG 3D Screening Mammo W/Cad Bilateral CC and MLO view(s) were taken. Prior study comparison: October 21, 2019, bilateral MG screening mammo w CAD. October 19, 2018, bilateral MG diagnostic mammo w CAD [place]. There are scattered fibroglandular densities. No significant changes when compared with prior studies. ASSESSMENT: Benign, BI-RAD 2 RECOMMENDATION: Routine screening mammogram of both breasts in 1 year.
== END | disposition home or self-care (01) ==
LOC: RADMAMWWP 15:45
PROVIDERS: ATTEND Surgery
DX: Z12.31 Encounter for screening mammogram for malignant neoplasm of breast (principal)
CPT/HCPCS: 77063; 77067

== ENCOUNTER → 2020-10-25 | Outpatient (CLI) | payer MEDICARE, OTHER ==
[2020-10-25 14:54] VITALS: BP 130/87; PULSE 87; RESP 18; TEMP 97.6
--- NOTE | 2020-10-25 16:03 | P.PN ---
Subjective Progress Note Date: 10/25/20 Principal diagnosis: Fibrocystic breast changes surveillance fibrocystic breast changes Patient is a 70 year old white female who presents for evaluation of her breasts. Patient has had multiple abscesses drained in the right breasts in the past, she has not had any recent abscesses. She has not had any fever or chills. Her last mammogram was on 10-23-20, it was benign BIRAD 2. This was benign BIRADS 2. It was bilateral. She has no dominant masses or nodules of concern in either breast. Of significance is the fact the patient is had bilateral reduction mammoplasties done in 1991. Since that time she has had recurrent abscesses in the inferior aspect of the right breast. These of required surgical drainage on multiple occasions. Her last surgical treatment was about three years ago draining an abscess from the right breast. At this time she does not have any chronic lumps masses nodules or lasting pain in either breast. She is not complaining of any nipple discharge or skin changes. Has marked asymmetry of the breast with the left breast being larger than the right. She is complaining of back pain related to this and also has shoulder notching. This causes emotional distress for the patient and she would like to have a symmetry procedure performed on the left breast. caffeine: 1 pot of coffee/day smoke: 1/2 pack of cigarettes/day chocolate: weekly Family History: no cancer mother: from CHF father: CHF Hormonal History: menarche: 16 : 3, 3 live births, did not breast-feed firstborn at 20 Menopause: 52 control pills: 2 years Hormones: 2 years Past Surgical History: 1. gallbladder 2. total hysterectomy 3. breast reduction 4. breast abcesses drained 5. heart cath Past Medical History: 1. COPD 2. bronchitis/emphysema 3. asthma 4. HTN 5. high cholesterol 6. nicotine dependance 7. diabetes 8. hyperlipedema Social Hsitory: smoke: 1 PPD/40 years alcohol: none drugs: none - Constitutional Constitutional: Denies chills, Denies fever - EENT Comment: cataract surgery bilateral eyes Ears: deny: decreased hearing, tinnitus Ears, nose, mouth and throat: Denies headache, Denies sore throat - Breasts Breasts: bilateral: as per HPI - Cardiovascular Cardiovascular: Reports high blood pressure - Respiratory Respiratory: Reports as per HPI - Gastrointestinal Gastrointestinal: Denies abdominal pain, Denies diarrhea, Denies nausea, Denies vomiting - Genitourinary (Female) Genitourinary: Denies dysuria, Denies hematuria - Menstruation Menstruation: Reports post hysterectomy - Musculoskeletal Musculoskeletal: Reports low back pain, Denies myalgias - Integumentary Integumentary: Denies pruritus, Denies rash - Neurological Neurological: Denies numbness, Denies weakness - Psychiatric Psychiatric: Denies anxiety, Denies depression - Endocrine Comment: diabetes - Hematologic/Lymphatic Comment: none - Allergic/Immunologic Comment: none Objective - Vital Signs Vital signs: Vital Signs Temp 97.6 F 10/25/20 14:51 Pulse 87 10/25/20 14:51 Resp 18 10/25/20 14:51 BP 130/87 10/25/20 14:51 Pulse Ox 95 10/25/20 14:51 Intake & Output 10/24/20 10/25/20 10/25/20 18:59 06:59 18:59 Weight 102.058 kg - Exam BMI 36.3 - Constitutional General appearance: Present: cooperative - EENT Eyes: Present: EOMI ENT: Present: hearing grossly normal - Neck Neck: Present: normal ROM - Respiratory Respiratory: bilateral: CTA - Cardiovascular Rhythm: regular Heart sounds: normal: S1, S2 - Gastrointestinal General gastrointestinal: Present: normal bowel sounds, soft - Integumentary Integumentary: Present: normal turgor - Musculoskeletal Musculoskeletal: Present: gait normal - Psychiatric Psychiatric: Present: A&O x's 3, appropriate affect - Additional findings Additional findings: breast exam: BRA: 48D inspection: bilateral breast reduction, scars; asymmetry of the breast with the left breast larger than the right palpation: right breast: Multi-positional exam fibrocystic changes, scars well-healed from prior reduction mammoplasty, there is a Area of chronic scar/wound approximately 8 mm in size which is healed at this time under the breast Right axilla: No adenopathy of concern, scarring from hidradenitis Left breast: Multi-positional exam fibrocystic changes, left breast is larger than the right breast. No dominant masses or nodules of concern Left axilla: No adenopathy of concern she has scarring from probable hidradenitis under the left axilla Assessment and Plan Assessment: Impression: 1. COPD 2. bronchitis/emphysema 3. asthma 4. HTN 5. high cholesterol 6. nicotine dependance 7. diabetes 8. hyperlipedema 3. Symmetric breast resulting in back pain and shoulder notching 10. Fibrocystic breast changes Plan: 1. At this time patient does not have any evident lesions which would require biopsy 2. Have discussed asymmetry of procedure on the left breast but this cannot be done if the patient is smoking 3. Repeat bilateral mammogram in 1 year 4. Area of chronic wound on the end of the right breast which appears to be healed at this time the best that it is been healed to follow this and if this becomes a problem she will call us sooner CC: Dr Harris encounter 20 minutes, time spent in record review, physical exam, and counsellin g. We have strongly urged her to stop smoking.
== END | disposition home or self-care (01) ==
LOC: WWCWWP 14:29
PROVIDERS: ATTEND Surgery
DX: Z53.9 Procedure and treatment not carried out, unspecified reason (principal)

== ENCOUNTER → 2021-07-11 | Outpatient (CLI) | payer MEDICARE, OTHER ==
[2021-07-11 17:41] LABS: African American GFR (CKD) 109.2 (60.0-200.0); Albumin 4.2 g/dL (3.8-4.9); Albumin/Globulin Ratio 1.73 (1.60-3.17); Anion Gap 14.8 mmol/L (4.00-12.00); BUN/Creat Ratio 20.85 Ratio (12.00-20.00); Blood Urea Nitrogen 12.3 mg/dL (9.0-27.0); Calcium 9.8 mg/dL (8.7-10.3); Carbon Dioxide 22.3 mmol/L (21.6-31.8); Chol/HDL Ratio 3.27 Ratio; Globulin 2.4 g/dL (1.6-3.3); HDL Cholesterol 46.5 mg/dL (40.00-60.00); LDL Cholesterol,Calculated 86.8 mg/dL (0.0-131.0); Non-African American GFR(CKD) 94.2 (60.0-200.0); Potassium 4.3 mmol/L (3.5-5.5); Total Bilirubin 0.4 mg/dL (0.30-1.20); Total Protein 6.6 g/dL (6.2-8.2); Triglycerides 93.5 mg/dL (0.00-149.00); VLDL Calculation 18.7 mg/dL (5.00-40.00)
== END | disposition home or self-care (01) ==
LOC: LABWHC1 08:32
PROVIDERS: ATTEND Internal Medicine
DX: I10 Essential (primary) hypertension (principal); E78.5 Hyperlipidemia, unspecified; E11.9 Type 2 diabetes mellitus without complications
CPT/HCPCS: 36415; 80053; 80061; 83036

== ENCOUNTER → 2021-10-25 | Outpatient (CLI) | payer MEDICARE, OTHER ==
--- NOTE | 2021-10-28 09:13 | MM ---
Reason for exam: screening (asymptomatic). Last mammogram was performed 1 year ago. History: Patient is postmenopausal. Cyst aspiration of the right breast, 1995. Excisional biopsy of the left breast, 1995. Reductions of both breasts, 1991. Took hormonal contraceptives for 2 years. Physical Findings: A clinical breast exam by your physician is recommended on an annual basis and results should be correlated with mammographic findings. MG 3D Screening Mammo W/Cad Bilateral CC and MLO view(s) were taken. Prior study comparison: October 23, 2020, bilateral MG 3d screening mammo w/cad. October 21, 2019, bilateral MG screening mammo w CAD. There are scattered fibroglandular densities. Post reduction mammoplasty changes bilaterally. Stable excisional changes superior left breast. No significant changes when compared with prior studies. ASSESSMENT: Benign, BI-RAD 2 RECOMMENDATION: Routine screening mammogram of both breasts in 1 year.
== END | disposition home or self-care (01) ==
LOC: RADMAMWWP 13:44
PROVIDERS: ATTEND Surgery
DX: Z12.31 Encounter for screening mammogram for malignant neoplasm of breast (principal); Z78.0 Asymptomatic menopausal state
CPT/HCPCS: 77063; 77067

== ENCOUNTER → 2021-12-20 | Outpatient (CLI) | payer MEDICARE, OTHER ==
--- NOTE | 2021-12-20 10:16 | XR ---
EXAMINATION TYPE: XR cervical spine w flex/ext DATE OF EXAM: 12/20/2021 COMPARISON: 03/09/2019 HISTORY: Pain 3 weeks TECHNIQUE: 5 view cervical spine. Flexion and extension views. FINDINGS: Vertebral body alignment is normal position. Flexion and extension views is there is some r ight mild foraminal narrowing at C3-4 and C6-7. Severe foraminal narrowing is present present on the left C6-7 and C7-T1. This may be slightly progressive from comparison. The odontoid is limited with o verlying occiput. Atheromatous plaquing is at the left carotid bifurcation. This could be evaluated w ith ultrasound. IMPRESSION: 1. Foraminal stenosis more severe on the left C6-7 and C7-T1 levels. 2. Alignment is preserved projections. 3. Vascular calcification left carotid bifurcation.
== END | disposition home or self-care (01) ==
LOC: RADXRMAIN 09:04
PROVIDERS: ATTEND Internal Medicine Cardiovascular Disease
DX: M99.71 Connective tissue and disc stenosis of intervertebral foramina of cervical region (principal); I65.22 Occlusion and stenosis of left carotid artery
CPT/HCPCS: 72052

== ENCOUNTER 2021-12-28 00:12 | Emergency (ER) | payer MEDICARE, OTHER ==
[2021-12-28 00:39] VITALS: TEMP 98.1
[2021-12-28] MEDS ORDERED: SODIUM CHLORIDE 0.9% 500 ML 500 ML IV ONE (02:57)
[2021-12-28] MEDS ORDERED: ORPHENADRINE 30 MG/ML 2 ML VIAL IVP STA (02:58)
--- NOTE | 2021-12-28 03:01 | ED ---
Neck Injury/Pain HPI - General Chief Complaint: Neck Pain/Injury Stated Complaint: Neck Pain Time Seen by Provider: 12/28/21 02:50 Source: RN notes reviewed Mode of arrival: ambulatory - History of Present Illness Initial Comments: This is a pleasant 71-year-old female with history of neck pain which is bothering her for about 2-3 weeks. Patient states she went to see her physician and had an EKG and x-rays done which apparently were not diagnostic. Patient has been set up for an MRI on January 13 but states that the neck pain was bothering her worse today. She is complaining of pain to the right side of her neck which is exacerbated by palpation and movement. States that the pain does radiate toward the superior aspect of her right shoulder. She denies any chest pain or shortness of breath. No fever or chills. No injury. No headache. No vision or hearing disturbance. No rashes or lesions. No difficulty with swallowing or speech. MD Complaint: neck pain - Related Data Home Medications Medication Instructions Recorded Confirmed Atorvastatin [Lipitor] 20 mg PO HS 12/11/14 10/25/20 glipiZIDE [Glucotrol] 10 mg PO W/BRKFST 12/11/14 10/25/20 metFORMIN HCL [Glucophage] 500 mg PO TID-W/MEALS 12/11/14 10/25/20 Aspirin EC [Ecotrin Low Dose] 81 mg PO HS 04/05/17 10/25/20 lisinopriL [Zestril] 20 mg PO DAILY 04/05/17 10/25/20 Previous Rx's Medication Instructions Recorded Docusate [Colace] 100 mg PO DAILY #30 capsule 12/28/21 HYDROcodone/APAP 5-325MG [Waldorf 1 tab PO Q6HR PRN 3 Days #12 tab 12/28/21 5-325] Allergies Allergy/AdvReac Type Severity Reaction Status Date / Time No Known Allergies Allergy Verified 12/28/21 00:37 Review of Systems ROS Statement: Those systems with pertinent positive or pertinent negative responses have been documented in the HPI. ROS Other: All systems not noted in ROS Statement are negative. Past Medical History Past Medical History: Asthma, Coronary Artery Disease (CAD), COPD, Diabetes Mellitus, Hyperlipidemia, Hypertension Additional Past Medical History / Comment(s): ABSCESS RIGHT BREAST, on antibiotic from Dr Clemens for breast infection, varicose veins, History of Any Multi-Drug Resistant Organisms: MRSA Date of last positivie culture/infection: 07/01/18 MDRO Source:: CHEST Past Surgical History: Breast Surgery, Cholecystectomy, Heart Catheterization, Hysterectomy Additional Past Surgical History / Comment(s): BREAST REDUCTION, BILAT CATARACTS REMOVED Past Anesthesia/Blood Transfusion Reactions: No Reported Reaction Date of Last Stent Placement:: 2011 Past Psychological History: No Psychological Hx Reported Smoking Status: Current every day smoker Past Alcohol Use History: None Reported Past Drug Use History: None Reported - Past Family History Mother Family Medical History: No Reported History General Exam General appearance: alert, in no apparent distress Head exam: Present: atraumatic, normocephalic, normal inspection Eye exam: Present: normal appearance, PERRL, EOMI. Absent: scleral icterus, conjunctival injection, periorbital swelling ENT exam: Present: normal exam, mucous membranes moist Neck exam: Present: normal inspection, tenderness (Patient has tenderness to the area of the right sternocleidomastoid muscle. No bony point tenderness. No definitive mass. Carotid pulses palpable. No pulsatile masses otherwise. No bruit noted.). Absent: meningismus, full ROM, lymphadenopathy Respiratory exam: Present: normal lung sounds bilaterally. Absent: respiratory distress, wheezes, rales, rhonchi, stridor Cardiovascular Exam: Present: regular rate, normal rhythm, normal heart sounds. Absent: systolic murmur, diastolic murmur, rubs, gallop, clicks GI/Abdominal exam: Present: soft, normal bowel sounds. Absent: distended, tenderness, guarding, rebound, rigid Extremities exam: Present: normal inspection, full ROM, normal capillary refill. Absent: tenderness, pedal edema, joint swelling, calf tenderness Back exam: Present: normal inspection Neurological exam: Present: alert, oriented X3, CN II-XII intact Psychiatric exam: Present: normal affect, normal mood Skin exam: Present: warm, dry, intact, normal color. Absent: rash Course Vital Signs 12/28/21 00:34 Temperature 98.1 F Pulse Rate 61 Respiratory 18 Rate Blood Pressure 130/64 O2 Sat by Pulse 97 Oximetry Medical Decision Making - Medical Decision Making Patient's computed tomography scan shows a right thyroid nodule. EKG shows no acute changes. We'll send the patient back to her care physician. I did agree to give the patient short course of [place]. We'll use can, Colace. Patient can proceed to her MRI as planned. Call her regular physician Thursday morning. The case was discussed in detail with ED attending physician. Presentation, findings, treatment plan discussed in detail. Patient was told to return to the ER for any signs or symptoms worsen. Told to return immediately if any other problems arise. All questions answered. Treatment plan discussed. Patient in agreement Every effort has been made to ensure accuracy of this dictation. However, due to the limitations of electronic medical records and dictation devices, errors in charting still occur. - Lab Data Result diagrams: 12/28/21 03:20 12/28/21 03:20 Lab Results 12/28/21 12/28/21 12/28/21 Range/Units 03:20 03:20 03:20 WBC 11.0 H (3.8-10.6) k/uL RBC 4.76 (3.80-5.40) m/uL Hgb 15.1 (11.4-16.0) gm/dL Hct 46.3 H (34.0-46.0) % MCV 97.1 (80.0-100.0) fL MCH 31.8 (25.0-35.0) pg MCHC 32.7 (31.0-37.0) g/dL RDW 12.8 (11.5-15.5) % Plt Count 378 (150-450) k/uL MPV 7.1 Neutrophils % 57 % Lymphocytes % 32 % Monocytes % 5 % Eosinophils % 3 % Basophils % 1 % Neutrophils # 6.2 (1.3-7.7) k/uL Lymphocytes # 3.6 (1.0-4.8) k/uL Monocytes # 0.6 (0-1.0) k/uL Eosinophils # 0.3 (0-0.7) k/uL Basophils # 0.1 (0-0.2) k/uL Sodium 134 L (137-145) mmol/L Potassium 4.4 (3.5-5.1) mmol/L Chloride 97 L (98-107) mmol/L Carbon Dioxide 30 (22-30) mmol/L Anion Gap 7 mmol/L BUN 11 (7-17) mg/dL Creatinine 0.59 (0.52-1.04) mg/dL Est GFR (CKD-EPI)AfAm >90 (>60 ml/min/1.73 sqM) Est GFR (CKD-EPI)NonAf >90 (>60 ml/min/1.73 sqM) Glucose 138 H (74-99) mg/dL Calcium 9.6 (8.4-10.2) mg/dL Troponin I <0.012 (0.000-0.034) ng/mL - EKG Data EKG Comments: EKG shows frequent PVCs. Right bundle-branch block, no acute ST-T wave changes. Normal intervals. Disposition Clinical Impression: Cervicalgia, Right thyroid nodule Disposition: HOME SELF-CARE Condition: Good Instructions (If sedation given, give patient instructions): Cervical Strain (ED), Thyroid Nodules (ED) Additional Instructions: Follow-up with your regular physician as directed. Return to the ER immediately if any symptoms worsen, new symptoms arise, or any other problems develop. Prescriptions: Docusate [Colace] 100 mg PO DAILY #30 capsule HYDROcodone/APAP 5-325MG [Waldorf 5-325] 1 tab PO Q6HR PRN 3 Days #12 tab PRN Reason: Pain Is patient prescribed a controlled substance at d/c from ED?: Yes When asked, does pt state using other controlled substances?: No If prescribed controlled substance>3 days was MAPS reviewed?: Prescribed <3 Days Referrals: Jazmyne Flannery MD [Primary Care Provider] - 1-2 days Time of Disposition: 04:34
[2021-12-28 03:28] LABS: Basophils # (A) 0.1 k/uL (0-0.2); Basophils % (A) 1 %; Eosinophils # (A) 0.3 k/uL (0-0.7); Eosinophils % (A) 3 %; HCT 46.3 % (34.0-46.0); HGB 15.1 gm/dL (11.4-16.0); Lymphocytes # (A) 3.6 k/uL (1.0-4.8); Lymphocytes % (A) 32 %; MCH 31.8 pg (25.0-35.0); MCHC 32.7 g/dL (31.0-37.0); MCV 97.1 fL (80.0-100.0); Mean Platelet Volume 7.1; Monocytes # (A) 0.6 k/uL (0-1.0); Monocytes % (A) 5 %; Neutrophils # (A) 6.2 k/uL (1.3-7.7); Neutrophils % (A) 57 %; Platelet Count 378 k/uL (150-450); RBC 4.76 m/uL (3.80-5.40); RDW 12.8 % (11.5-15.5)
[2021-12-28 03:49] LABS: African American GFR (CKD) >90 (>60 ml/min/1.73 sqM); Anion Gap 7 mmol/L; Blood Urea Nitrogen 11 mg/dL (7-17); Calcium 9.6 mg/dL (8.4-10.2); Carbon Dioxide 30 mmol/L (22-30); Chloride 97 mmol/L (98-107); Glucose 138 mg/dL (74-99); Non-African American GFR(CKD) >90 (>60 ml/min/1.73 sqM); Potassium 4.4 mmol/L (3.5-5.1); Sodium 134 mmol/L (137-145)
--- NOTE | 2021-12-28 04:23 | XR ---
EXAMINATION TYPE: XR chest 1V portable DATE OF EXAM: 12/28/2021 COMPARISON: NONE HISTORY: Chest pain TECHNIQUE: Single view FINDINGS: Heart is enlarged. There is slight blunting of the costophrenic angles. No obvious heart fa ilure. There are no hilar masses. Bony thorax is intact. IMPRESSION: Mild cardiomegaly. Minimal pleural reaction at the lung bases. No heart failure seen. Old right-sided healed rib fractures are noted.
--- NOTE | 2021-12-28 04:29 | CT ---
EXAMINATION TYPE: CT soft tissue neck w con DATE OF EXAM: 12/28/2021 COMPARISON: None HISTORY: RT NECK PAIN CT DLP: 334 mGycm Automated exposure control for dose reduction was used. CONTRAST: Performed with IV Contrast, patient injected with 85 mL of Isovue 300. Images obtained from the aortic arch to the maxillary sinuses with IV contrast. There is normal branching pattern of the great vessels on the aortic arch. There is arterial flow in the subclavian arteries. There is arterial flow in the common internal and external carotid arteries bilaterally. There is moderate plaque at the carotid artery bifurcations. There is approximate 50% st enosis at the origins of both internal carotid arteries. There is bilateral flow in the vertebral art eries. There is bilateral contrast specification of the jugular veins. Epiglottis appears normal. Pre vertebral soft tissues are intact. Adenoids are intact. Parotid glands appear normal. The submandibul ar salivary glands are symmetric. There is no cervical adenopathy. The tongue appears normal. The tonsils and adenoids are within natalee l limits. There is minor spurring in the cervical spine. There is some mild asymmetric enlargement of the right thyroid lobe. There is a 1.5 cm rounded hypode nsity right thyroid lobe that could be a cyst. IMPRESSION: Hypodense right thyroid nodule. Otherwise negative CT scan of the neck.
[2021-12-28 04:54] VITALS: BP 134/61; PULSE 68; RESP 16
== END 2021-12-28 04:54 | disposition home or self-care (01) ==
LOC: EC 00:12
DX: E04.1 Nontoxic single thyroid nodule (principal); E11.9 Type 2 diabetes mellitus without complications; I10 Essential (primary) hypertension; J44.9 Chronic obstructive pulmonary disease, unspecified; I25.10 Atherosclerotic heart disease of native coronary artery without angina pectoris; E78.5 Hyperlipidemia, unspecified; F17.200 Nicotine dependence, unspecified, uncomplicated; Z79.84 Long term (current) use of oral hypoglycemic drugs; Z79.82 Long term (current) use of aspirin; Z79.899 Other long term (current) drug therapy
CPT/HCPCS: 36415; 93005; 80048; 84484; 85025; 71045; 70491; 99284; 96374; J2360; Q9967

== ENCOUNTER → 2022-01-13 | Outpatient (CLI) | payer MEDICARE, OTHER ==
--- NOTE | 2022-01-13 14:45 | US ---
EXAMINATION TYPE: US thyroid st tissue head/neck DATE OF EXAM: 01/13/2022 COMPARISON: CT CLINICAL HISTORY: E04.1 THYROID NODULE. Nodule. GLAND SIZE: Right Lobe: 5.6 x 2.4 x 2.6 cm. *Slightly limited due to position of thyroid within neck. Overall Parenchyma: heterogenous Left Lobe: 5.4 x 1.9 x 1.9 cm Overall Parenchyma: homogeneous Isthmus Thickness: 0.14 cm NODULES RIGHT: # of nodules measured on right: 1 1. 2.2 X 2.3 x 1.8 cm, lower mid, solid or almost completely solid, isoechoic nodule, which is wide r than tall, with smooth margins, without echogenic foci. Prior size: CT is only prior *Hypoechoic border noted LEFT: # of nodules measured on left: 1 1. 1.0 X 1.0 x 0.8 cm, mid, mixed cystic and solid, hypoechoic nodule, which is wider than tall, wi th smooth margins, without echogenic foci Prior size: No prior ISTHMUS: # of nodules measured in the isthmus: 0 Bilateral neck scanned, no evidence of lymphadenopathy. IMPRESSION: Thyroid Glandular enlargement and nonspecific nodularity.
== END | disposition home or self-care (01) ==
LOC: RADUSWWP 12:27
PROVIDERS: ATTEND Internal Medicine
DX: E04.1 Nontoxic single thyroid nodule (principal)
CPT/HCPCS: 76536

== ENCOUNTER → 2022-01-13 | Outpatient (CLI) | payer MEDICARE, OTHER ==
--- NOTE | 2022-01-14 03:57 | MR ---
EXAMINATION TYPE: MR cervical spine wo con DATE OF EXAM: 01/13/2022 COMPARISON: None HISTORY: Spinal stenosis, cervical region, pain Multiplanar multiecho imaging of the cervical spine without contrast. The vertebra have normal alignment. There is some degenerative disc space narrowing at C5-6 and C6-7. There is mild posterior disc bulging from C4 to C7. There is developmentally adequate spinal canal. No spinal stenosis. Cervical spinal cord has normal signal pattern. The spinal canal measures 9 mm at C6-7 which is the narrowest point. The brainstem is intact. There is no paraspinal mass. IMPRESSION: Multilevel mild spondylotic changes. Degenerative disc space narrowing in the lower lumbar spine. No spinal stenosis.
== END | disposition home or self-care (01) ==
LOC: RADMRIMAIN 12:28
PROVIDERS: ATTEND Internal Medicine
DX: M48.02 Spinal stenosis, cervical region (principal); M47.812 Spondylosis without myelopathy or radiculopathy, cervical region; M50.322 Other cervical disc degeneration at C5-C6 level
CPT/HCPCS: 72141

== ENCOUNTER → 2024-08-04 | Outpatient (CLI) | payer MEDICARE, OTHER ==
--- NOTE | 2024-08-04 15:53 | XR ---
EXAMINATION TYPE: XR Hip Complete RT, XR femur RT DATE OF EXAM: 08/04/2024 3:01 PM INDICATION: Patient age:Female; 73 years old; Reason for study: M25.551; [facility]. COMPARISON: CT abdomen and pelvis 03/23/2019 TECHNIQUE: The right hip was examined in the frontal and lateral projections . 2 views of the right h ip. The right femur was examined in frontal and lateral projections. 2 views of the right femur. FINDINGS: No evidence of any acute osseous pathology, joint dislocation, or soft tissue swelling. The re is some medial joint space narrowing with acetabular sclerosis and marginal osteophytosis of the r ight hip. Pelvic phleboliths demonstrated. No significant osteoarthritic change of the right knee. IMPRESSION: 1. No acute osseous pathology. 2. Mild osteoarthritic change at the right hip. [facility], , 08/04/2024 3:51 PM
--- NOTE | 2024-08-04 22:09 | US ---
EXAMINATION TYPE: US thyroid st tissue head/neck DATE OF EXAM: 08/04/2024 COMPARISON: US CLINICAL INDICATION: Female, 73 years old with history of E04.1 THYROID NOD; F/U TECHNIQUE: Grayscale and color Doppler imaging of the thyroid gland. FINDINGS: GLAND SIZE: Right Lobe: 5.3x1.7x2.6 cm Overall Parenchyma: heterogeneous Left Lobe: 4.7x1.6x2.2 cm Overall Parenchyma: heterogeneous Isthmus Thickness: 0.4 cm NODULES RIGHT: # of nodules measured on right: 1 1. 2.4 X 1.9 x 2.4 cm, mid mid, solid or almost completely solid, hypoechoic nodule, which is wider than tall, with smooth margins, without echogenic foci. TR4. Biopsy recommended. Prior size: 2.1 x 1.8 x 2.0 cm LEFT: # of nodules measured on left: 1 1. 1.3 X 1.0 x 1.2 cm, mid mid, spongiform, hypoechoic nodule, which is wider than tall, with christian h margins, without echogenic foci. TR 4. Follow-up exam in one year recommended. Prior size: 1.0 x 0.8 x 1.0 cm ISTHMUS: # of nodules measured in the isthmus: 0 Bilateral neck scanned, no evidence of lymphadenopathy. Bilateral Thyroid Nodules as described above IMPRESSION: 1. Right lobe inferior pole thyroid. Fine-needle aspiration recommended. 2017 ACR TI-RADS LEVEL: TR-RADS 4 - Moderately Suspicious: Follow if > 1 cm, FNA if > 1.5 cm *Highest TI-RADS level nodule reported [email or web address] [facility], , 08/04/2024 10:07 PM
== END | disposition home or self-care (01) ==
LOC: RADUSWWP 13:11
PROVIDERS: ATTEND Internal Medicine
DX: M16.11 Unilateral primary osteoarthritis, right hip (principal); E04.1 Nontoxic single thyroid nodule
CPT/HCPCS: 73502; 76536

== ENCOUNTER 2024-09-13 12:43 | Day surgery (SDC) | payer MEDICARE, OTHER ==
[2024-09-13] MEDS: ALPRAZolam 0.25 MG TAB PO STA (13:16)
[2024-09-13 13:18] VITALS: TEMP 98
--- NOTE | 2024-09-13 14:45 | US ---
EXAMINATION TYPE: US FNA thyroid first lesion DATE OF EXAM: 09/13/2024 2:03 PM COMPARISON: 08/04/2024 CLINICAL INDICATION:Female, 73 years old with history of E04.1 NONTOXIC SINGLE THYROID NODULE; , ATTENDING: Dr. Damon Lisa PROCEDURE: Informed consent was obtained. The risks and benefits of the procedure were discussed with the patien t. The site was marked. Timeout procedure was performed Ultrasound imaging demonstrates right thyroid nodule The patient was prepped, draped in the usual sterile fashion, and locally anesthetized with 1% lidoca ine. Five fine needle aspiration were then performed with a 25 gauge needle. Samples were sent to [facility] pathology department for further analysis. Patient tolerated the procedure without incident and wa s sent home in stable condition. IMPRESSION: Successful ultrasound guided fine needle aspiration [facility], Workstation: [id number], 09/13/2024 2:43 PM
[2024-09-13 15:49] VITALS: PULSE 74
[2024-09-13 15:50] VITALS: BP 141/64; RESP 16
== END 2024-09-13 14:20 | disposition home or self-care (01) ==
LOC: RADPROMAIN 12:43
PROVIDERS: ATTEND Internal Medicine
DX: E04.1 Nontoxic single thyroid nodule (principal)
CPT/HCPCS: 10005; 88173; 88305

== ENCOUNTER → 2025-04-04 | Outpatient (CLI) | payer MEDICARE, OTHER ==
--- NOTE | 2025-04-04 13:34 | NM ---
EXAMINATION TYPE: NM stress lexiscan cardiolite DATE OF EXAM: 04/04/2025 COMPARISON: NONE CLINICAL INDICATION: Female, 74 years old with history of R10.84 GENERAL ABD PAIN; history of hyperte nsion and diabetes. History of hypercholesterolemia. TECHNIQUE: After the intravenous administration of 9.3 mCi Tc 99m Sestamibi - Cardiolite resting SPE CT images acquired 45 minutes post injection. The patient received 0.4mg Lexiscan, 25.5 mCi Tc 99m Sestamibi - Stress images obtained [address] injection FINDINGS: Review of stress and rest SPECT images demonstrates diminished radiotracer uptake on rest and stress images involving the inferior lateral wall towards the apex suspicious for old infarct. No convincin g evidence for reversible ischemia Gated analysis shows overall estimated left ventricular ejection f raction of 39 %, diminished from the normal range. IMPRESSION: Suspect old infarct. No convincing evidence for reversible ischemia. Correlate clinicall y. No scintigraphic evidence for reversible ischemia. [facility], , 04/04/2025 1:32 PM
--- NOTE | 2025-04-04 14:37 | CA ---
Lexiscan Nuclear Stress Test Report Name: Carmelita Collins Exam Date: 04/04/2025 10:43 Exam Location: [place] Stress Ht (in): 64 Wt (lb): 170 BSA: 1.83 Ordering Phys: Jazmyne Flannery MD Referring Phys: Jazmyne Flannery MD Technologist: SAUL Age: 74 Gender: F : 1950 Procedure CPT: Indications: R10.84 GENERAL ABD PAIN ICD-10 Codes: Patient History: Short of breath, hypertension, diabetes and tobacco use. Medications: Meds past 24 hrs: Pretest Chest Pain: STRESS TEST Lexiscan Protocol Exercise Duration (min:sec): 02:[address] Depressions (mm): Angina Score: Awan Score: Resting HR (bpm): 72 Peak HR (bpm): 100 Resting BP (mmHg): 134 / 60 Peak BP (mmHg): 146 / 63 MPHR: 148 Target HR: 126 % MPHR: 68 METS: 1.0 Total Dose: Peak Dose: Atropine: Double Product: 06026 BP Response: Stress Termination: Infusion complete Stress Symptoms: No chest pain or symptoms Stress Summary: ECG ANALYSIS Resting ECG: Stress ECG: CONCLUSIONS Reason: Shortness of breath with risk factors for CAD No ECG is for ischemia during Lexiscan infusion Intermittent PVCs Dr. Chris Carmichael MD (Electronically Signed) Final Date: 04 April 2025 14:36
== END | disposition home or self-care (01) ==
LOC: RADNMMAIN 08:54
PROVIDERS: ATTEND Internal Medicine
DX: I65.23 Occlusion and stenosis of bilateral carotid arteries (principal); I25.10 Atherosclerotic heart disease of native coronary artery without angina pectoris; E78.00 Pure hypercholesterolemia, unspecified; I10 Essential (primary) hypertension; I49.3 Ventricular premature depolarization
CPT/HCPCS: 93017; 78452; A9500

== ENCOUNTER → 2025-04-24 | Outpatient (CLI) | payer MEDICARE, OTHER ==
--- NOTE | 2025-04-25 08:03 | CA ---
Transthoracic Echo Report Name: Carmelita Collins Age: 74 Gender: F : 1950 Exam Date: 04/24/2025 15:01 Exam Location: [facility] Ht (in): 65 Wt (lb): 170 Ordering Physician: Jazmyne Flannery MD Attending/Referring Phys: Gaming Director Kristel Staley RDCS Procedure CPT: Indications: I25.10 CORON ART Cardiac Hx: Technical Quality: Fair Contrast 1: Total Dose (mL): Contrast 2: Total Dose (mL): MEASUREMENTS (Male / Female) Normal Values 2D ECHO LV Diastolic Diameter PLAX 4.6 cm 4.2 - 5.9 / 3.9 - 5.3 cm LV Systolic Diameter PLAX 3.1 cm IVS Diastolic Thickness 1.3 cm 0.6 - 1.0 / 0.6 - 0.9 cm LVPW Diastolic Thickness 1.3 cm 0.6 - 1.0 / 0.6 - 0.9 cm LV Relative Wall Thickness 0.6 RV Internal Dim ED PLAX 2.8 cm LA Systolic Diameter LX 4.5 cm 3.0 - 4.0 / 2.7 - 3.8 cm LV Diastolic Volume MOD BP 51.3 cm??? 67 - 155 / 56 - 104 cm??? LV Systolic Volume MOD BP 26.9 cm??? 22 - 58 / 19 - 49 cm??? LV Ejection Fraction MOD BP 47.6 % >= 55 % LV Cardiac Index MOD BP 797.2 cm???/min???m??? LV Diastolic Volume MOD 4C 66.5 cm??? LV Systolic Volume MOD 4C 37.5 cm??? LV Ejection Fraction MOD 4C 43.5 % LV Cardiac Index MOD 4C 943.5 cm???/min???m??? LV Diastolic Length 4C 6.6 cm LV Systolic Length 4C 6.0 cm LV Diastolic Volume MOD 2C 37.0 cm??? LV Systolic Volume MOD 2C 17.5 cm??? LV Ejection Fraction MOD 2C 52.5 % LV Cardiac Index MOD 2C 633.0 cm???/min???m??? LV Diastolic Length 2C 6.1 cm LV Systolic Length 2C 5.4 cm LA Volume 54.1 cm??? 18 - 58 / 22 - 52 cm??? LA Volume Index 28.4 cm???/m??? 16 - 28 cm???/m??? M-MODE Aortic Root Diameter MM 2.7 cm LA Systolic Diameter MM 5.2 cm LA Ao Ratio MM 1.9 AV Cusp Separation MM 1.7 cm DOPPLER MV Area PHT 2.7 cm??? Mitral E Point Velocity 66.5 cm/s Mitral A Point Velocity 93.6 cm/s Mitral E to A Ratio 0.7 MV Deceleration Time 285.2 ms TR Peak Velocity 216.6 cm/s TR Peak Gradient 18.8 mmHg FINDINGS Left Ventricle Left ventricular ejection fraction is estimated at 50-55 %. Borderline left ventricular systolic function.left ventricular cavity size normal. Mildly increased left ventricular wall thickness. Right Ventricle Mild right ventricular dilatation. Right ventricular systolic pressure within normal limits. Right Atrium Mild right atrial dilatation. Left Atrium Moderately increased left atrial diameter. Mitral Valve Structurally normal mitral valve. mild mitral regurgitation. No mitral stenosis.mitral annular calcification. Aortic Valve Trileaflet aortic valve. No aortic valve stenosis or regurgitation. Tricuspid Valve Structurally normal tricuspid valve. Mild tricuspid regurgitation. No tricuspid stenosis. Pulmonic Valve Structurally normal pulmonic valve. Trace pulmonic regurgitation. No pulmonic stenosis. Pericardium No pericardial or pleural effusion. Aorta Normal size aortic root and proximal ascending aorta. CONCLUSIONS 1. Left ventricular systolic function borderline normal 2. Mild mitral and tricuspid regurgitation Previewed by: Dr. Erica Villavicencio MD (Electronically Signed) Final Date: 25 April 2025 08:03
== END | disposition home or self-care (01) ==
LOC: RADECHMAIN 14:01
PROVIDERS: ATTEND Internal Medicine
DX: I25.10 Atherosclerotic heart disease of native coronary artery without angina pectoris (principal); I08.1 Rheumatic disorders of both mitral and tricuspid valves
CPT/HCPCS: 93306

== ENCOUNTER → 2025-04-24 | Outpatient (CLI) | payer MEDICARE, OTHER ==
--- NOTE | 2025-04-24 14:49 | US ---
EXAMINATION TYPE: US carotid duplex BILAT DATE OF EXAM: 04/24/2025 COMPARISON: NONE CLINICAL INDICATION: Female, 74 years old with history of I65.23 CAROT STENOSIS; confusion, no h/o st roke Additional History: .... TECHNIQUE: Grayscale, color Doppler and spectral Doppler evaluation of the bilateral carotid systems and vertebral arteries. Indirect Doppler criteria was utilized. FINDINGS: EXAM MEASUREMENTS: RIGHT: Peak Systolic Velocity (PSV) cm/sec ----- Right CCA: 50.4 ----- Right ICA: 84.4 ----- Right ECA: 87.7 ICA/CCA ratio: 1.7 RIGHT: End Diastole cm/sec ----- Right CCA: 8.6 ----- Right ICA: 21.7 ----- Right ECA: 0.0 LEFT: Peak Systolic Velocity (PSV) cm/sec ----- Left CCA: 56.1 ----- Left ICA: 73.0 ----- Left ECA: 122.0 ICA/CCA ratio: 1.3 LEFT: End Diastole cm/sec ----- Left CCA: 13.1 ----- Left ICA: 19.7 ----- Left ECA: 10.3 VERTEBRALS (direction of flow): Right Vertebral: Antegrade Left Vertebral: Antegrade Rhythm: Normal SENIOR SPEECH PATHOLOGIST NOTES: Heterogeneous plaque at bilateral bulbs/ICA, no significant stenosis seen Color Doppler imaging shows patency with blood flow throughout the carotid artery. Spectral waveforms are within normal limits. IMPRESSION: No evidence for hemodynamically significant stenosis. Criteria for Assigning % of Stenosis / Diameter reduction (Estimation based on the indirect measurements of the internal carotid artery velocities (ICA PSV). 1. Normal (no stenosis)=ICA PSV < 180 cm/s: ratio < 2.0: ICA EDV<40 cm/s. 2. Less than 50% stenosis=ICA PSV < 180 cm/s: ratio < 2.0: ICA EDV<40 cm/s. 3. 50 to 69% stenosis=ICA PSV of 180 to 230 cm/s: ration 2.0 ? 4.0: ICA EDV 40-100 cm/s. PSV 125-180 cm/sec and ICA/CCA PSV Ratio ? 2.0 is also consistent with 50-69% stenosis 4. Greater than 70% stenosis to near occlusion= ICA PSV > 230 cm/s: ratio > 4.0: ICA EDV > 100 cm/s. 5. Near occlusion= ICA PSV velocities may be low or undetectable: variable ratio and ICA EDV. 6. Total occlusion=unable to detect flow. [facility], , 04/24/2025 2:47 PM
== END | disposition home or self-care (01) ==
LOC: RADUSWWP 14:08
PROVIDERS: ATTEND Internal Medicine
DX: I65.23 Occlusion and stenosis of bilateral carotid arteries (principal)
CPT/HCPCS: 93880